=== PATIENT | female | born 1945 | race Caucasian/White ===

== ENCOUNTER 2016-09-13 10:26 | Inpatient (IN) | payer OTHER, MEDICAID ==
[~2016-09-13] VITALS: Ht 152.4 cm; Wt 75.0 kg
[2016-09-13] VITALS (7 sets, daily range): BP systolic 167–224; BP diastolic 49–64
[~2016-09-13 10:26] MED LIST: AMLODIPINE BESYL5 M1 PO; AMLODIPINE10 MG PO; AMLODIPINE5 M1 PO; ARI10 PO; ASPI-COR81 M3 PO; ASPIRIN ADULT L81 M1 PO; CARVEDILOL25 M1 PO; CARVEDILOL25 MG PO; CLONAZEPAM0.25 MG PO; CLONIDINE HCL PO; CLONIDINE HCL0.2 MG PO; COL250 PO; CORE25 PO; ECOTRIN81 M1 PO; ECOTRIN81 MG; ENALAPRIL20 MG PO; EZETIMIBE; GABAPENTIN100 MG PO; GLYBURIDE2.5 M PO; IBU400 MG PO; MOT400 PO; NEP PO; NEURONTIN PO; NITROSTAT0.4 MG SL; OMEPRAZOLE20 MG PO; PAROXETINE HCL20 MG PO; PAXIL20 PO; PHOS LO667 MG PO; RANITIDINE150 MG PO; RENO CAPS1 SGL PO; RENVELA800 M1 PO; RENVELA800 MG PO; SENSIPAR30 M1 PO; SENSIPAR30 MG PO; SIMVASTATIN; STOOL SOFTENER100 MG PO; TEMAZEPAM PO; TRAZODONE50 MG PO; VYTORIN 10 MG-21 TAB PO; VYTORIN1 TA3 PO; [UNRECOGNIZED DRUG - OTHER]
--- NOTE | 2016-09-13 10:36 | NUR ---
EKG IN TRIAGE
--- NOTE | 2016-09-13 10:36 | NUR ---
PER PT DAUGHTER PT IS ON HOME O2; SHE DOS NOT KNOW HOW MANY LITERS AND DID NOT BRING PORTABLE O2.
--- NOTE | 2016-09-13 10:53 | NUR ---
patient is a 71-year-old female brought in by daughter to be evaluated for the chief complaint of pressure-like chest pain which began at approximately 0000 today. The patient also reports left upper extremity pain and nausea accompanied the chest pain. Patient denies any numbness or paresthesia to the left upper external. The patient states that the pain has been constant since it began. Patient also reports shortness of breath. Lung sounds are clear bilaterally in all lung lobes. No objective dyspnea noted. Patient's daughter reports that the patient is on home oxygen at 2 L per minute. Patient is a dialysis patient and receives dialysis Wednesdays and Fridays. Patient did go to her dialysis appointment on Wednesday and completed an entire treatment. Shunt noted to the left upper external. The shunt has a positive bruit and thrill. Medical evaluation was completed by Dr. Lane. Patient is hooked up to the full agriculture instructor. Patient placed into a position of comfort. That is in low position with the side rails up x 2. patient able to speak in full clear sentences.
--- NOTE | 2016-09-13 11:08 | NUR ---
patient's family reports that the patient does not produce any urine so a urine specimen will be unable to obtain. . Dr. orellana is aware.
[2016-09-13 11:09] LABS: BASOPHIL % 0.6 % (0-2); PLATELET COUNT 193 x10^3mcL (130-400)
[2016-09-13 11:19] LABS: RED CELL DISTRIBUTION WIDTH 14.9 % (11.5-14.5)
[2016-09-13 11:24] LABS: ALBUMIN 3.5 g/dL (3.4-5.0); ALKALINE PHOSPHATASE 84 U/L (46-116); ALT/SGPT 16 U/L (14-59); AST/SGOT 18 U/L (15-37); BILIRUBIN TOTAL 0.77 mg/dL (0.20-1.00); CALCIUM 8.9 mg/dL (8.5-10.1); CARBON DIOXIDE 29.3 mmol/L (21-32); CHLORIDE SERUM 99 mmol/L (98-107); CHOLESTEROL 160 mg/dL (<200); CHOLESTEROL/HDL RATIO 3.3; GLUCOSE SERUM 106 mg/dL (74-106); HDL CHOLESTEROL 49 mg/dL (40-60); LIPASE 178 IU/L (73-393); POTASSIUM SERUM 4.3 mmol/L (3.5-5.1); SODIUM SERUM 140 mmol/L (136-145); TOTAL PROTEIN, SERUM 7.5 g/dL (6.4-8.2); TRIGLYCERIDES 87 mg/dL (<150)
[2016-09-13 11:26] LABS: CREATININE SERUM 6.3 mg/dL (0.6-1.0)
[2016-09-13 11:35] LABS: FREE THYROXINE INDEX 2.2 ug/dL (1.4-4.5); T4(THYROXINE) 5.9 ug/dL (4.7-13.3)
[2016-09-13 12:00] LABS: T3 TOTAL 0.56 ng/mL
--- NOTE | 2016-09-13 12:04 | NUR ---
DR. TREVINO AT BEDSIDE SPEAKING WITH THE PT ABOUT PLAN OF CARE
[2016-09-13] MEDS ORDERED: RENO CAPS1 SGL PO (12:21)
--- NOTE | 2016-09-13 12:55 | NUR ---
REPORT CALLED TO PRECIOUS VILLARREAL TO ASSUME CARE FOR THIS PT.
[2016-09-13 13:10] LABS: MAGNESIUM 2.4 mg/dL (1.8-2.4); PHOSPHOROUS 4.5 mg/dL (2.5-4.9)
--- NOTE | 2016-09-13 13:51 | NUR ---
PT RECEIVED FROM ED VIA [email or web address]. PT IS A&O X3. PT IS ACCOMPANIED BY HER DAUGHTER. TELE MONITOR [address]. PT HAS AN IV IN HER RIGHT FOREARM THAT IS PATENT. ALL SAFETY PRECAUTIONS IN PLACE. WILL CONTINUE TO MONITOR.
--- NOTE | 2016-09-13 14:48 | NUR ---
DR ZIEGLER IN TO ASSESS PATIENT AT THIS TIME. AWARE OF PATIENT BP OF 224/62 AND PULSE [address] DOUGLAS TO HOLD COREG AT THIS TIME. WILL CONTINUE TO MONITOR PATIENT. ALL SAFETY PRECAUTIONS IN PLACE.
--- NOTE | 2016-09-13 15:10 | NUR ---
PATIENT STATED THAT SHE THINKS THE PACEMAKER IS STICKING OUT OF HER CHEST MORE THAN USUAL. PHYSICIAN NOTIFIED OF PACEMAKER AND CURRENT BP. NO NEW ORDERS AT THIS TIME.
--- NOTE | 2016-09-13 15:50 | NUR ---
PATIENT ASSISTED TO BEDSIDE COMMODE AT THIS TIME. VOID X1, STRAW COLORED/CLOUDY. RETURNED SAFELY TO BED, BED ALARM TURNED ON. WILL CONTINUE TO MONITOR.
--- NOTE | 2016-09-13 17:40 | NUR ---
PHYSICIAN NOTIFIED OF CRITICAL RESULT OF GREATER THAN 80% LEFT INTERNAL CAROTID ARTERY STENOSIS. NO NEW ORDERS AT THIS TIME.
--- NOTE | 2016-09-13 19:32 | NUR ---
PT ENDORSED TO NEXT SHIFT. AT THIS TIME THE PATIENT IS RESTING IN BED WITH FAMILY PRESENT. NO SIGNS OF ACUTE DISTRESS. ALL SAFETY PRECAUTIONS ARE IN PLACE.
--- NOTE | 2016-09-13 19:35 | NUR ---
REC'D PT RESTING IN BED WITH FAMILY AT BEDSIDE. PT IS AAOX4. TELE #34 SB HR=56. PACEMAKER TO LEFT CHEST. PT C/O MILD CP AND HEADACHE /. TOLERABLE AT THIS TIME. LUNG SOUNDS DIM. NO SOB NOTED. PT IS ON 2L O2 VIA NC. BS ACTIVE X4. AV SHUNT NOTED TO DANIELLA. THRILL/BRUIT PRESENT. IV NOTED TO RFA. INTACT AND PATENT. SAFETY AND COMFORT MEASURES IN PLACE. BED IN LOWEST POSITION. CALL LIGHT WITHIN REACH. WILL CONTINUE TO MONITOR.
--- NOTE | 2016-09-13 19:58 | NUR ---
PT C/O 10/18 PAIN TO HANDS DUE TO ARTHRITIS. NORCO WAS GIVEN (SEE MAR).
--- NOTE | 2016-09-13 22:24 | NUR ---
RECEIVED CALL FROM DR FLEMING, COVERING FOR DR DUNLAP REGARDING DIALYSIS FOR THIS PT TOMORROW. RECEIVED ORDER TO SCHEDULE DIALYSIS AND HAVE DIALYSIS NURSE CALL FOR ORDERS IN THE AM. LUCIE (DIALYSIS NURSE) MADE AWARE AND HD IS SCHEDULED FOR TOMORROW AM.
[2016-09-14] VITALS (14 sets, daily range): BP systolic 96–255; BP diastolic 36–100
[2016-09-14 03:25] LABS: BASOPHIL % 1.1 % (0-2); PLATELET COUNT 184 x10^3mcL (130-400)
[2016-09-14 03:31] LABS: RED CELL DISTRIBUTION WIDTH 14.7 % (11.5-14.5)
[2016-09-14 03:36] LABS: CALCIUM 8.6 mg/dL (8.5-10.1); CARBON DIOXIDE 29.7 mmol/L (21-32); CHLORIDE SERUM 101 mmol/L (98-107); GLUCOSE SERUM 99 mg/dL (74-106); MAGNESIUM 2.4 mg/dL (1.8-2.4); PHOSPHOROUS 5.2 mg/dL (2.5-4.9); POTASSIUM SERUM 4.7 mmol/L (3.5-5.1); SODIUM SERUM 140 mmol/L (136-145)
[2016-09-14 04:11] LABS: CREATININE SERUM 7.5 mg/dL (0.6-1.0)
--- NOTE | 2016-09-14 04:14 | NUR ---
REC'D CALL FROM LAB. CR = 7.5. DR BURTON MADE AWARE.
--- NOTE | 2016-09-14 05:04 | NUR ---
PT RESTING IN BED. NO DISTRESS NOTED. CALL LIGHT WITHIN REACH. WILL CONTINUE TO MONITOR.
--- NOTE | 2016-09-14 07:42 | NUR ---
ASSISTED WITH BREAKFAST SET UP.
--- NOTE | 2016-09-14 08:10 | NUR ---
PATIENT ALERT AND ORIENTED, GEORGIAN SPEAKING. TELE #34, SINUS JAIMIE, HR 52, NO PACING, PACEMEAKER TO RIGHT CHEST. REPORTS CHEST PAIN 04/17, GIVEN NORCO. PULSES PRESENT, NO EDEMA NOTED. LUNG SOUNDS DIMINSHED AT BASES, ON 2L NC, NO SOB NOTED. LBM 09/12/16. AV SHUNT WNL, THRILL AND BRUIT PRESENT. ABLE TO MOVE ALL EXTREMETIES, FALL PRECAUTIONS IN PLACE. PAIN IN HAND DUE TO ARTHRITIS, 09/17. IV SITE SL, PATENT AND INTACT. CALL LIGHT WITH IN REACH
--- NOTE | 2016-09-14 08:25 | NUR ---
ORDER FROM DOCTOR JOHN FLEMING VIA TELEPHONE. FÉLIX, Markus 2.0, DURATION 3 HOURS, REMOVE 1-2L TOLERATED. READ BACK DONE.
--- NOTE | 2016-09-14 08:31 | NUR ---
DR CAPONE IN TO SEE PATIENT. MADE AWARE OF 80% STENOSIS AND THAT PACEMAKER IS MOVING.
--- NOTE | 2016-09-14 08:58 | NUR ---
echocardiogram pending-done less than 6 months ago-03/22/16 copy in chart
--- NOTE | 2016-09-14 10:03 | NUR ---
CANCELLATION REQUESTED FOR ECHOCARDIOGRAM
--- NOTE | 2016-09-14 10:20 | NUR ---
REPORTS NO CHEST PAIN AT THIS TIME. STATES PAIN IS BETTER IN HER HANDS, 3/10
--- NOTE | 2016-09-14 10:55 | NUR ---
REPORTS H/A, 05/18, GIVEN TYLENOL 325 MG DUE TO NORCO ALREADY BEING ADMINSTERED. REPORTS NO CHEST PAIN OR NAUSEA AT THIS TIME. RESTING IN BED WITH AT BEDSIDE
--- NOTE | 2016-09-14 12:43 | NUR ---
SITITNG UP IN CHAIR, FINISHED WITH PT. TOLERATED MED WELL, EATING LUNCH
--- NOTE | 2016-09-14 13:49 | NUR ---
BP 217/53 (107), HR 60. BP MED NOT GIVEN THIS MORNING DUE TO DIALYSIS TODAY. CONTACTED DIALYSIS NURSE AND STATED SHE WOULD BE IN THE ROOM IN ABOUT 5 MINUTES
--- NOTE | 2016-09-14 14:40 | NUR ---
DIALYSIS NURSE IN ROOM, NO DISTRESS NOTED
--- NOTE | 2016-09-14 15:00 | NUR ---
NO CHANGE IN BP, GIVEN AM BP MEDS
--- NOTE | 2016-09-14 15:27 | NUR ---
BP REMAINED HIGH AFTER DIALYSIS STARTED. HD NURSE ASKED THAT CLONIDINE BE GIVEN. IT WAS ADMINISTERED AT 1454. THE HD NURSE THEN ASKED FOR ADDITIONAL BP MEDS TO BE GIVEN. REMAIINING CARDIAC MEDS GIVEN AT 1517. DR FORD IN ROOM AND AWARE OF ELEVATED BP AND MEDS THAT WERE GIVEN. NO DISTRESS NOTED.
--- NOTE | 2016-09-14 15:41 | NUR ---
Inital Nutrition Assessment Dx: Chest Pain, New Onset CHF PMHx: DM, HTN, ESRD, PSHx: Apendectomy, Right Pacemaker Placement, Left forearm AV fistula Labs: Ca 8.6, BG 99, A1C 6.2, BUN 35H, Cr 7.5H, Phos 5.2H, H/H 11.2/34 L. Meds: Antivert, Catapres, Colace, Coreg, Humulin, Hydralazine, Lipitor, Nitrostat, Norvasc, Phoslo, Renagel, NS IV, Theragran, Zestril, Zofran Diet: CCHO 60g, Renal PO intake: (09/13) D: 50% (09/14) B: 50% Ht: 60in Wt: (09/13) 167 lb (09/14) 157lb (bed scale) BMI: 32.6kg/m2 (Obese Class I) IBW: 100lb %IBW: 167% Adj. BW: 117lb UBW: 159 lb (per pt) Age: 71 y/o F Food Allergies: None Skin: Skin intanct. Mack 19 Edema: Per pt slight edema noted on feet GI: Last BM 09/12 Nursing Trigger: Unintentional weight loss >10 lb in past month; Poor PO intake for >3 days; Nausea, Vomiting or Diarrhea for >3 days. Pt admitted with disorder of acute nephrotic syndrome without syncope and with generalized weakness, pt on Hemodialysis on Wednesday, Wednesday, Wednesday per H&P notes. Per progress note (09/14) pt has an 80% left internal carotid artery stenosis. Per Bed Huddles (09/14) pt's Troponin test results are within normal limits. planning intern interviewed pt who was alert and lying in bed. Pt states weight has decreased but unsure on the amount of weight change, appetite has decreased since 3 months ago, but no current nausea or vomiting. Problems with: N: No V: No D: No C: No Problems with: Chewing: No Swallowing: No Current Appetite: Poor-Fair Recent wt change: 10 lb loss (1 day, questionable) %wt change: 6% weight loss Vitamin/Supplement use: Multivitamin per Dialysis center Diet at home: Follows diet recommendations provided by dialysis center Physical activity: Uses cane and needs assistance, limited Education: planning intern discussed weight change and per pt notices fluid shifts and swelling on face and feet. Pt attested to poor PO intake due to poor appetite, international trade specialist encouraged small, frequent meals and oral supplement 1x per day. Pt also confirmed tiredness while eating, pt agreeable to having meals chopped beforehand as family does this for her at home. Billiard Player educated pt on low sodium diet and left education material for family as pt states she cannot see well. Estimated Nutritional Needs Based on: Adjusted Body Weight 117lb, 53.2kg Energy: 9995-7216 kcal/d (30-35 kcal/kg for Geriatric Maintenance and Hemodialysis) Protein: 63-69g/d (1.2-1.3g/kg for Geriatric Maintenance and Hemodialysis) Fluid: per doctor due to patient on Hemodialysis and new onset CHF Nutrition Diagnosis: 1. Altered nutrition related lab values related to kidney failure as evidenced by BUN 35, Phosphorus 5.2, and Cr 7.5. 2. Inadequate oral intake related to poor appetite secondary to lethargy as evidenced by PO intake of 50% x2 days. Intervention: 1. Recommend Mechanical Soft, chopped CCHO, 60g and Renal diet 2. Recommend oral supplement Novasource Renal, 1x per day (475kcal, 21.6g protein) 3. Recommend Nephro-darius x1 per day, please d/c Theragran Monitor/ Evaluate: Goal: PO intake with oral supplement to meet at least 75% of estimated needs Monitor: PO intake, Labs (BUN, Cr, Phosphorus), GI function F/U in 3-5 days as Moderate risk 09/17-
--- NOTE | 2016-09-14 16:45 | NUR ---
BP 255/74(134), HR 69. GIVEN HYDRAZALINE. DIALYSIS DONE, 2L OUT. DOCTOR MADE AWARE
--- NOTE | 2016-09-14 16:48 | NUR ---
HD CONTINUES, BP CONTINUES TO BE ELEVATED. SPOKE WITH DR MCKEON, MADE AWARE OF MEDS ALREADY GIVEN AND CONTINUING HD. OKAY TO GIVE HYDRAZALINE.
--- NOTE | 2016-09-14 17:15 | NUR ---
HD FINISHED. CRYING. REPORTED HAVING CHEST PAIN, DIZZYNESS AND NOT FEELING WELL. MEDICATED WITH NTG X 1 SL. BP DECREASED TO 151/74 HR 52. REPORTS "POCITO" CHEST PAIN AND SINGH, BUT IS MUCH BETTER.
--- NOTE | 2016-09-14 17:21 | NUR ---
CHEST PAIN 4/10. REPORTS SOME DIZZINESS, TECH IN ROOM EKG
--- NOTE | 2016-09-14 17:37 | NUR ---
2 DOSES OF NTG WERE GIVEN. PATIENT REPORTS FEELING VERY BAD, SWEATING, EMESIS. BP LOW 96/36 HR 53. GLUCOSE 140. BP NOW 151/51 HR 68. FEELING BETTER.
--- NOTE | 2016-09-14 18:01 | NUR ---
FAMILY BEDSIDE. PAGED DR HOLDER.
--- NOTE | 2016-09-14 18:02 | NUR ---
DR MCKEON AWARE THAT BP DROPPED AND BACK UP AT THIS TIME.
--- NOTE | 2016-09-14 18:05 | NUR ---
SPOKE WITH DR HOLDER, HE WILL BE IN TO TALK WITH FAMILY AROUND 1900. FAMILY AWARE.
--- NOTE | 2016-09-14 18:42 | NUR ---
PATIENT REPORTED CHEST PAIN /10, BREATHING IS [id number]. BR 188/52(126), HR 78, O2 SAT 99%. MADE RESIDENT AWARE. RESIDENT STATED GIVE MOPRPHINE. FAMILY AT BEDSIDE
--- NOTE | 2016-09-14 19:04 | NUR ---
REPORTS PAIN IS GETTING BETTER, 05/18 . CONSENT FOR RELEASE OF MEDICAL RECORDS SIGNED. DR WU TO TALK TO FAMILY.
--- NOTE | 2016-09-14 19:10 | NUR ---
PATIENT RECEIVED AWAKE, ALERT, AND ORIENTED X 4. FAMILY AT BEDSIDE. NO DISTRESS NOTED. PATIENT DENIES CHEST PAIN BUT C/O CHEST DISCOMFORT STATING IT MAY BE DUE TO HER PACEMAKER. IV SITE TO RIGHT FOREARM, PATENT AND INTACT. AC SHUNT TO DANIELLA, SITE CDI. BED IN LOWEST POSITION. CALL LIGHT WITHIN REACH. WILL CONTINUE TO MONITOR.
[2016-09-15] VITALS (10 sets, daily range): BP systolic 124–215; BP diastolic 34–89
--- NOTE | 2016-09-15 05:06 | NUR ---
PATIENT RESTED THROUGHOUT THE NIGHT. NO DISTRESS NOTED. MEDICATED FOR HAND PAIN WITH NORCO PO X 1 PER DOCTOR'S PRN ORDER. BED IN LOWEST POSITION. CALL LIGHT WITHIN REACH. WILL CONTINUE TO MONITOR AND ENDORSE TO NEXT SHIFT NURSE.
--- NOTE | 2016-09-15 06:01 | NUR ---
PATIENT MEDICATED FOR NAUSEA AND VOMITING WITH ZOFRAN IVP PER DOCTOR'S PRN ORDER.
[2016-09-15 06:34] LABS: BASOPHIL % 0.6 % (0-2); PLATELET COUNT 196 x10^3mcL (130-400)
[2016-09-15 06:36] LABS: RED CELL DISTRIBUTION WIDTH 14.9 % (11.5-14.5)
[2016-09-15 06:47] LABS: CALCIUM 8.8 mg/dL (8.5-10.1); CARBON DIOXIDE 33.7 mmol/L (21-32); CHLORIDE SERUM 99 mmol/L (98-107); GLUCOSE SERUM 135 mg/dL (74-106); MAGNESIUM 2.1 mg/dL (1.8-2.4); PHOSPHOROUS 5.3 mg/dL (2.5-4.9); POTASSIUM SERUM 4.2 mmol/L (3.5-5.1); SODIUM SERUM 136 mmol/L (136-145)
[2016-09-15 06:50] LABS: CREATININE SERUM 5.5 mg/dL (0.6-1.0)
--- NOTE | 2016-09-15 07:45 | NUR ---
AWAKE AND ALERT, NEPALI SPEAKING. NO DISTRESS NOTED, REPORTS NO CHEST PAIN OR DIZZINESS AT THIS TIME, PACEMAKER TO RIGHT CHEST. 2L NC, NO SOB NOTED, LUNG SOUNDS DIMINSHED. PULSES PRESENT, NO EDEMA NOTED. BOWEL SOUNDS PRESENT. LEFT AV SHUNT, BUIT AND THRILL PRESENT. IV SITE RFA, SL, WNL. FALL PRECAUTIONS IN PLACE
--- NOTE | 2016-09-15 08:41 | NUR ---
DR PEACE IN TO SEE PATIENT. AWARE OF PATIENT FALL AND COMPLAINTS OF PAIN. PLAN FOR DC HOME TODAY.
--- NOTE | 2016-09-15 08:43 | NUR ---
DR PEACE IN TO SEE PATIENT. AWARE OF DIZZYNESS AND NAUSEA/VOMITING.
--- NOTE | 2016-09-15 09:04 | NUR ---
COULD NOT GIVE AM MED EARILER DUE TO NAUSEA AND NOW SLEEPING
--- NOTE | 2016-09-15 10:25 | NUR ---
MEDICATIONS HELD DUE TO LOW DIASTOLIC BP, 132/36(86), HR 66
--- NOTE | 2016-09-15 12:47 | NUR ---
SITTING UP IN BED EATING LUNCH. TOLERATED MED WELL. REPORTS NO CHEST PAIN, NAUSEA OR DIZZINESS
--- NOTE | 2016-09-15 13:22 | NUR ---
PT IN TO WORK WITH PATIENT.
--- NOTE | 2016-09-15 14:31 | NUR ---
ASLEEP, RESP EVEN AND UNLABORED.
--- NOTE | 2016-09-15 15:19 | NUR ---
DR FORD IN TO SEE PATIENT. MADE AWARE PACEMAKER MOVES.
--- NOTE | 2016-09-15 15:22 | NUR ---
SLEEPING, BREATHING EVEN AND UNLABORED, NO DISTRESS NOTED
--- NOTE | 2016-09-15 16:26 | NUR ---
REPORTS NO PAIN, DIZZINESS OR NAUSEA, NO SOB NOTED
--- NOTE | 2016-09-15 16:38 | NUR ---
PHYSICAL THERAPY DAILY NOTES CO-SIGN All documentation done by the Telecom Manager for 09/15/16 has been reviewed. I agree with the documentation. Reviewed/Co-Signed by: Marga Loera PT Documentation Done by:KIM CALDERÓN HULL DRAFTER POC REVIEWED W/ HULL DRAFTER; PROGRESSING W/ GAIT ENDURANCE & FUNC MOB.
--- NOTE | 2016-09-15 16:46 | NUR ---
SPOKE TO DR. FLEMING OVER THE PHONE ABOUT PATIENTS BP, NOW 155/41 (91), HR 61 AND STATED TO GIVE AMLODIPINE ONLY
--- NOTE | 2016-09-15 17:07 | NUR ---
TOLERATED MEDICATIONS WELL
--- NOTE | 2016-09-15 18:35 | NUR ---
SLEEPING, BREATHING EVEN AND UNLABORED, NO DISTRESS NOTED
--- NOTE | 2016-09-15 19:56 | NUR ---
PT CURRENTLY RESTING IN BED, NO ACUTE DISTRESS. A/O X4. TELE #34 SHOWING SINUS RHYTHM. DENIES CHEST PAIN. PULSES PALPABLE IN ALL EXTREMITIES, NO EDEMA NOTED. LUNG SOUNDS CTA BILATERALLY. BOWEL SOUNDS ACTIVE, LAST BM 09/12/16. AV SHUNT NOTED TO DANIELLA, LAST HD ON 09/14/16. GENERALIZED WEAKNESS NOTED. SKIN INTACT. DENIES PAIN AT THIS TIME. IV PATENT AND INTACT. BED IN LOWEST POSITION, SIDE RAILS UP X2, SCDS IN PLACE, CALL LIGHT WITHIN REACH. WILL CONTINUE TO MONITOR.
[2016-09-16 00:51] VITALS: BP 168/39
--- NOTE | 2016-09-16 00:53 | NUR ---
BLOOD PRESSURE 168/39, HEART RATE 60, NO ACUTE DISTRESS. DR TELLO INFORMED. WILL CONTINUE TO MONITOR.
[2016-09-16 05:54] LABS: BASOPHIL % 0.5 % (0-2); PLATELET COUNT 179 x10^3mcL (130-400)
[2016-09-16 05:55] LABS: RED CELL DISTRIBUTION WIDTH 15.1 % (11.5-14.5)
[2016-09-16 05:56] VITALS: BP 148/38
--- NOTE | 2016-09-16 05:58 | NUR ---
PT SLEPT PERIODICALLY THROUGHOUT NIGHT, NO ACUTE DISTRESS. ALL NEEDS MET AND ATTENDED TO. NO SIGNIFICANT CHANGES. IV PATENT AND INTACT. BED IN LOWEST POSITION, SIDE RAILS UP X2, SCDS IN PLACE, CALL LIGHT WITHIN REACH. WILL ENDORSE CARE TO ONCOMING NURSE.
[2016-09-16 06:21] LABS: CALCIUM 8.8 mg/dL (8.5-10.1); CARBON DIOXIDE 28.4 mmol/L (21-32); CHLORIDE SERUM 100 mmol/L (98-107); GLUCOSE SERUM 132 mg/dL (74-106); MAGNESIUM 2.2 mg/dL (1.8-2.4); PHOSPHOROUS 5.8 mg/dL (2.5-4.9); POTASSIUM SERUM 4.8 mmol/L (3.5-5.1); SODIUM SERUM 141 mmol/L (136-145)
[2016-09-16 06:28] LABS: CREATININE SERUM 7.2 mg/dL (0.6-1.0)
--- NOTE | 2016-09-16 08:00 | NUR ---
AWAKE AND ALERT. TEMP 98.8. TELE #34 SINUS RHYTHM RATE 67. DENIES CHEST DISCOMFORT. RI=196/47. NPO SCHEDULED FOR [facility] TODAY AT 1100. RESP 18 EVEN. BREATH SOUNDS CLEAR. NO COUGH OR SOB. PULSE OX 98% RA. ABD SOFT, BOWEL TONES PRESENT. LBM 8--17. ESRD ANURIC. AV FISTULA LEFT ARM WITH PALPABLE BRUIT AND THRILL. LAST DIALYSIS 09-14-16. WILL CHECK WITH DR DUNLAP FOR ORDERS. NO EDEMA. PULSES WEAK BUT PRESENT. SALINE LOCK RFA 20g. SIDE RAILS UP X2. CALL LIGHT IN REACH.
--- NOTE | 2016-09-16 08:20 | NUR ---
DR CARY AND MEDICAL TEAM IN ON ROUNDS. DISCUSSED WITH PT PLAN FOR TODAY WITH [place]. VERBALIZED UNDERSTANDING.
--- NOTE | 2016-09-16 08:45 | NUR ---
CALL TO SANDOR IN [facility]. REVIEWED PTS MEDICATIONS AND BP READING. WILL ADMINISTER PO MEDS ORDERED. PACEMAKER TO RIGHT UPPER CHEST NOTED.
--- NOTE | 2016-09-16 10:00 | NUR ---
CALL TO DR DUNLAP FOR DIALYSIS ORDERS. INSTRUCTED TO HAVE [facility] N[facility]SE CALL FOR ORDERS. TC TO [facility]. WILL CALL FOR ORDERS. TODAYS LABS ON CHART. DUE TO RADHAAN AT 1100, DIALYSIS WILL BE LATER THIS EVENING.
[2016-09-16 10:18] VITALS: BP 170/45
--- NOTE | 2016-09-16 10:34 | NUR ---
AND SON AT BEDSIDE. THEY REPORT "HER PACEMAKER MOVES DOWN UNDER HER ARMPIT SOMETIMES AND IT IS UNCOMFORTABLE FOR HER. HER DR SAID THEY CAN DO SURGERY TO TIGHTEN IT UP, BUT SHE HAS TO MAKE THE DECISION TO DO SURGERY." SANDOR HERE FROM [facility]. PT UP TO WHEELCHAIR. TO DISCUSS PACEMAKER ISSUE WITH DR FORD IN [facility] DURING [facility]. PT TAKEN DOWN AT THIS TIME. SON AND WITH HER.
--- NOTE | 2016-09-16 11:50 | NUR ---
PT RETURNED FROM [facility]. ASSIST BACK TO BED. XXX=[id number]. NO RISS COVERAGE. C/O HEADACHE 09/17. "HOLDING HEAD." MED WITH TYLENOL 650MG PO ORDERED FOR HEADACHE. SNACK PROVIDED. XT=783/54.
--- NOTE | 2016-09-16 12:50 | NUR ---
PT REPORTS ONLY A LITTLE BIT OF RELIEF FROM TYLENOL FOR HEADACHE. PT C/O MILD NAUSEA NO EMESIS. NEW ORDER FOR TORADOL 30MG IV AND PHENERGAN 12.5MG IVP GIVEN. LUNCH SERVED BUT PT REPORTS WILL WAIT RIGHT NOW.
--- NOTE | 2016-09-16 13:15 | NUR ---
PT SLEEPING. AROUSED. REPORTS IN BEL[place]IAN "HEADACHE IS MUCH BETTER 03/20". WILL CONTINUE TO MONITOR.
[2016-09-16 13:24] VITALS: BP 132/84
--- NOTE | 2016-09-16 16:15 | NUR ---
PHYSICAL THERAPY DAILY NOTES CO-SIGN All documentation done by the Customer Development Representative for 09/16/16 has been reviewed. I agree with the documentation. Reviewed/Co-Signed by: Marga Loera PT Documentation Done by:KIM CALDERÓN CARPET RENOVATOR POC REVIEWED W/ CARPET RENOVATOR; PROGRESSING W/ FUNC MOB & GAIT ENDURANCE.
--- NOTE | 2016-09-16 16:30 | NUR ---
SPOKE WITH CASE MANAGEMENT RE:OXYGEN USE. PT REMAINS DROWSY BUT AROUSABLE FROM TORADOL AND PHENERGAN GIVEN AT 1250. ENCOURAGED DEEP BREATHING EXERCISES. OXYGEN REMOVED AND PULSE OX ASSESSED. ORTHOSTATIC VITAL SIGNS TAKEN. PULSE OX DROPPED TO 89% ON ROOM AIR. NO SOB. OXYGEN REAPPLIED 1L NC. WILL CONTINUE TO MONITOR. FAMILY AT BEDSIDE.
[2016-09-16 16:35] VITALS: BP 136/41
--- NOTE | 2016-09-16 18:45 | NUR ---
PULSE OX CHECKED ON OXYGEN 1L NC 96%. OXYGEN REMOVED. PULSE OX DROPPED TO 89% ON RA. PT REMAINS DROWSY BUT AROUSABLE. DEEP BREATHING EXERCISES ENCOURAGED. OXYGEN 1L NC REAPPLIED. PULSE OX WENT UP TO 93%. CALL LIGHT IN REACH.
--- NOTE | 2016-09-16 20:15 | NUR ---
Awake and verbally responsive. No resp.distress noted. Denies pain at this time. Denies chest pain. For hemodialysis tonight. LFA AVfistula intact (+)bruit/thrill. Will cont.to monitor. Call light within reach.
[2016-09-16 21:34] VITALS: BP 160/44
--- NOTE | 2016-09-16 21:55 | NUR ---
Hemodialysis in progress.
[2016-09-17] VITALS (7 sets, daily range): BP systolic 119–187; BP diastolic 40–68
--- NOTE | 2016-09-17 00:30 | NUR ---
Hemodialysis done. 2liters out per HD nurse.
--- NOTE | 2016-09-17 04:08 | NUR ---
Afebrile. No significant change in condition noted. Denies pain. Denies n/v. Slept well. In no apparent distress.
[2016-09-17 06:22] LABS: BASOPHIL % 0.5 % (0-2); PLATELET COUNT 176 x10^3mcL (130-400)
[2016-09-17 06:28] LABS: RED CELL DISTRIBUTION WIDTH 14.9 % (11.5-14.5)
[2016-09-17 06:38] LABS: CALCIUM 9.1 mg/dL (8.5-10.1); CARBON DIOXIDE 31.2 mmol/L (21-32); CHLORIDE SERUM 100 mmol/L (98-107); GLUCOSE SERUM 84 mg/dL (74-106); PHOSPHOROUS 3.9 mg/dL (2.5-4.9); POTASSIUM SERUM 3.6 mmol/L (3.5-5.1); SODIUM SERUM 141 mmol/L (136-145)
[2016-09-17 07:12] LABS: CREATININE SERUM 4.6 mg/dL (0.6-1.0)
--- NOTE | 2016-09-17 08:00 | NUR ---
RECEIVED PATIENT ALERT AND ORIENTED TIMES FOUR. PATIENT AHS BEEN OOB AND TO THE BEDSIDE TO EQAT AND SHE DOES NTO COMPLAIN OF NAUSEA BUT DID HAVE SOME DIZINESS AND GAVE ANTIVERT INDICATED. GILDA HAS BEEN ON DIALYSIS AND IT WAS COMPLETED AROUND ONE AM. ANDERS AHS CLEAR BUT DISINISHED BREATH SOUNDS AND VERY DIMINIHSED TO THE RIGHT LUNG. SHE HAS BEEN WITH SOME MILD EDEMA TOT HE LOWER EXTREMITES AND SHE HAS BEEN WITH THE SHUNT INTACT AND NO ACTIVE BLEEDIN TO THE SITE. PATIENT REFUSED THE COLACE THIS AM AND SHE TOOK ALL HER MEDICATIONS INDICATED. PATIENT HAS BEEN ADVISED SHE WILL BE HAVING A SET UP FOR SNF FOR REHAB AND PT. PATIENT IS AGREEABLE AT THIS TIME. VITALS ARE AT 99.0, 65, 18, 136/55, 99% ON ROOM AIR. GILDA NTOED TO HAVE PACEMAKE TO THE CHEST AND GILDA HAS BEEN HEPLOCKED. LAST BLOOD SUGAR WAS AT 132 AND PATIENT HAS NOTED CREATININE AT 4.6 PER RECENT CALL FROM LAB. 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 PATIENT HAS A STRESS TEST AND NOTED INFERIOR WALL WY CAN NOT BE RULED OUT. WILL CONTINUE TO MONITOR AND NO COMPLAINTS OF CHEST PAIN OR SOB AT THIS TIME.
--- NOTE | 2016-09-17 09:15 | NUR ---
SEEN BY THE INTERNS AND THE RESIDENT AND PLAN OF CARE DISCUSSED. PATIENT FOR TRANSER TO SNF INDICATED.
--- NOTE | 2016-09-17 10:04 | NUR ---
PATIENT REFUSED PT AT THIS TIME SHE WEA TIRED FROM THE DIALYSIS ENDING AT 1AM. SHE TOLERATE DDIET AND FLUDIS WELL AND SPOUSE AT BEDSIDE AND SUPPORTIVE WITH CARE.
--- NOTE | 2016-09-17 10:36 | NUR ---
PLAN OF CARE GIVEN TO THE PATIENT WITH A SPAINISH SPEAKING GEAR SHAVER SET UP OPERATOR AT BEDSIDE.
--- NOTE | 2016-09-17 13:16 | NUR ---
GAVE HYDROLYZINE FOR BP WITH SBP OF 180 AND WILL MONITO RFOR EFFECTIVENESS. PATIENT HAS HAD DIZZINESS AND SLIGHT HEADACHE. PATIEUNT WAS UP WITH PT AND TOLERATED WELL BUT THEY TOOK HER BP AND NOTED AND ADVISED THE STAFF OF ELEVATION. WILL RECHCECK INDICATED.
--- NOTE | 2016-09-17 14:41 | NUR ---
HAD COMPLAINED OF STOMACH PAIN BUT WHEN ARRIVE TO THE ROOM PATIENT IS ASLEEP. AT BEDSIDE. WILL CONTINUE TO MONITOR.
--- NOTE | 2016-09-17 15:29 | NUR ---
PHYSICAL THERAPY DAILY NOTES CO-SIGN All documentation done by the Manager Communication for 09/17/16 has been reviewed. I agree with the documentation. Reviewed/Co-Signed by: Trinh Stark PT Documentation Done by: Christina Evans OIL CHANGER Pt able to follow VC's educated on safety with functional mobility
[2016-09-17] MEDS ORDERED: NITROSTAT0.4 MG SL (17:12)
--- NOTE | 2016-09-17 17:26 | NUR ---
ADVISED THE PATIENT WILL BE GOING HOME TODAY. PATIENT FOR HOME HEALTH. PATIENT DAUGHTER CAN NOT SOFTWARE PACKAGER TILL 930PM TIM. WILL START DISCHARGE PAPERWORK.
[2016-09-17] MEDS ORDERED: ECOTRIN81 M2 PO (17:41)
[2016-09-17] MEDS ORDERED: RESTORIL15 MG GT (17:45)
--- NOTE | 2016-09-17 18:42 | NUR ---
RETOOK BP AND NOTED AT 173/40. PER PARIMETER THE PATIENT DOES NOT MEET CRITERIA FOR RECEIVING ANOTHER DOSE OF HYDRALYZINE. ADVISED THE PATEINT TO PLEASE TAKE HER EVENING MEDICATION WHEN SHE GETS HOME. PATIENT IS ANXIOUS TO LEAVE AT THIS TIME. PATIENT IS DRESSING AND GAVE INSTRUCTIONS AND TO CONTINUE HER MEDICINES ORDERED.
--- NOTE | 2016-09-17 19:39 | NUR ---
BP AT 173/40 AND PAIIENT GIVEN NITRO ORDERED. PRIOR TO DISCHARGE NOW AT 134/56. DISCHARGE TO HOME WITH ALL BELONGINGS.
== END 2016-09-17 18:53 | disposition home health service (06) | DRG 291 ==
LOC: ED 10:26 → DU 12:10 → MU 13:51 → DU 14:14
PROVIDERS: Family Medicine; Specialist; ADMIT Student in an Organized Health Care Education/Training Program
DX: I13.2 Hypertensive heart and chronic kidney disease with heart failure and with stage 5 chronic kidney disease, or end stage renal disease (principal); N17.0 Acute kidney failure with tubular necrosis; N18.6 End stage renal disease; I50.43 Acute on chronic combined systolic (congestive) and diastolic (congestive) heart failure; J96.00 Acute respiratory failure, unspecified whether with hypoxia or hypercapnia; D68.69 Other thrombophilia; G45.1 Carotid artery syndrome (hemispheric); I20.9 Angina pectoris, unspecified; E11.9 Type 2 diabetes mellitus without complications; D64.9 Anemia, unspecified; M94.0 Chondrocostal junction syndrome [Tietze]; Z99.2 Dependence on renal dialysis; Z79.82 Long term (current) use of aspirin; Z68.32 Body mass index [BMI] 32.0-32.9, adult; Z79.84 Long term (current) use of oral hypoglycemic drugs
CPT/HCPCS: 36600; 82962; 83880; 84439; 97110-GP; 97116-GP; 97530-GP; A9500; J0360; J1885; J2270; J2405; J2550; J2785; J7030; J8597; Q0092